=== PATIENT | female | born 1955 | race Caucasian/White ===

== ENCOUNTER 2017-02-21 21:37 | Inpatient (IN) | payer OTHER ==
[~2017-02-21] VITALS: Ht 170.2 cm; Wt 81.2 kg
[2017-02-21 23:27] LABS: BASOPHIL % 0.3 % (0-2); PLATELET COUNT 174 x10^3mcL (130-400)
[2017-02-21 23:36] LABS: RED CELL DISTRIBUTION WIDTH 15.3 % (11.5-14.5)
[2017-02-21 23:45] LABS: CALCIUM 9.2 mg/dL (8.5-10.1); CARBON DIOXIDE 26.7 mmol/L (21-32); CHLORIDE SERUM 97 mmol/L (98-107); CREATININE SERUM 0.6 mg/dL (0.6-1.0); GFR1 > 60 mL/min; GLUCOSE SERUM 103 mg/dL (74-106); POTASSIUM SERUM 3.4 mmol/L (3.5-5.1); SODIUM SERUM 133 mmol/L (136-145)
[2017-02-21 23:50] LABS: ALBUMIN 3.7 g/dL (3.4-5.0); ALKALINE PHOSPHATASE 61 U/L (46-116); ALT/SGPT 63 U/L (14-59); AST/SGOT 104 U/L (15-37); BILIRUBIN TOTAL 0.5 mg/dL (0.20-1.00)
[2017-02-21 23:52] LABS: TOTAL PROTEIN, SERUM 8.3 g/dL (6.4-8.2)
[2017-02-22] VITALS (7 sets, daily range): BP systolic 122–149; BP diastolic 55–77
[2017-02-22] MEDS ORDERED: METOPROLOL SUCC50 M2 PO (00:51)
[2017-02-22] MEDS ORDERED: ENALAPRIL MALEA10 MG PO (00:51)
[2017-02-22] MEDS ORDERED: LORAZEPAM0.5 MG PO (00:52)
[2017-02-22] MEDS ORDERED: SIMVASTATIN20 M1 PO (00:52)
[2017-02-22] MEDS ORDERED: ACETAMINOPHEN A1 TAB PO (00:53)
[2017-02-22] MEDS ORDERED: ASPIR 8181 MG PO (00:54)
[2017-02-22] MEDS ORDERED: VENTOLIN H0.09 MG/A1 (00:54)
[2017-02-22] MEDS ORDERED: NITROSTAT0.4 MG PO (00:54)
[2017-02-22 01:18] LABS: MAGNESIUM 1.6 mg/dL (1.8-2.4); PHOSPHOROUS 2.4 mg/dL (2.5-4.9)
[2017-02-22 01:19] LABS: CHOLESTEROL/HDL RATIO 1.9
[2017-02-22 01:32] LABS: FREE T4 1.11 ng/dL (0.76-1.46); FREE THYROXINE INDEX 2.4 ug/dL (1.4-4.5)
[2017-02-22 02:17] LABS: T3 TOTAL 1.02 ng/mL
[2017-02-22 04:28] LABS: microscopic required? YES; urine erythrocyte 1+ (NEGATIVE)
[2017-02-22 04:35] LABS: AMPHETAMINE QUAL UR NONE DETECTED (NEG <=1000)
[2017-02-22] MEDS ORDERED: GEMFIBROZIL600 MG PO (06:00)
[2017-02-22 11:52] LABS: CALCIUM 8.5 mg/dL (8.5-10.1); CARBON DIOXIDE 25.1 mmol/L (21-32); CHLORIDE SERUM 100 mmol/L (98-107); CREATININE SERUM 0.7 mg/dL (0.6-1.0); GFR1 > 60 mL/min; GLUCOSE SERUM 210 mg/dL (74-106); MAGNESIUM 1.7 mg/dL (1.8-2.4); PHOSPHOROUS 2.4 mg/dL (2.5-4.9); SODIUM SERUM 136 mmol/L (136-145)
[2017-02-23 05:13] VITALS: BP 119/68
[2017-02-23 06:34] LABS: PLATELET COUNT 201 x10^3mcL (130-400)
[2017-02-23 06:37] LABS: BASOPHIL % 0 % (0-2); RED CELL DISTRIBUTION WIDTH 15.3 % (11.5-14.5)
[2017-02-23 06:51] LABS: CALCIUM 8.8 mg/dL (8.5-10.1); CARBON DIOXIDE 25.8 mmol/L (21-32); CHLORIDE SERUM 100 mmol/L (98-107); CREATININE SERUM 0.8 mg/dL (0.6-1.0); GFR1 > 60 mL/min; GLUCOSE SERUM 196 mg/dL (74-106); MAGNESIUM 1.8 mg/dL (1.8-2.4); PHOSPHOROUS 2.2 mg/dL (2.5-4.9); POTASSIUM SERUM 4.4 mmol/L (3.5-5.1); SODIUM SERUM 135 mmol/L (136-145)
[2017-02-23] MEDS ORDERED: LEVAQUIN750 MG PO (11:28)
[2017-02-23] MEDS ORDERED: LAC PO (11:29)
[2017-02-23] MEDS ORDERED: CLEOCIN HCL300 MG PO (11:32)
== END 2017-02-23 08:00 | disposition left against medical advice (07) | DRG 177 ==
LOC: ED 21:37 → DU 02-22 00:31
PROVIDERS: Emergency Medicine; Family Medicine; ADMIT Family Medicine
DX: J69.0 Pneumonitis due to inhalation of food and vomit (principal); N17.0 Acute kidney failure with tubular necrosis; J44.1 Chronic obstructive pulmonary disease with (acute) exacerbation; N39.0 Urinary tract infection, site not specified; E87.1 Hypo-osmolality and hyponatremia; E87.6 Hypokalemia; E83.42 Hypomagnesemia; F10.10 Alcohol abuse, uncomplicated; E87.8 Other disorders of electrolyte and fluid balance, not elsewhere classified; E78.5 Hyperlipidemia, unspecified; I10 Essential (primary) hypertension; I25.2 Old myocardial infarction; Z79.82 Long term (current) use of aspirin; F17.210 Nicotine dependence, cigarettes, uncomplicated
CPT/HCPCS: 36600; 83880; 84439; 94150; G0480; J0456; J0696; J2543; J2920; J2930; J7030; J7613; J7620; J7644; Q0092

== ENCOUNTER 2017-02-23 21:02 | Observation (INO) | payer OTHER ==
[~2017-02-23] VITALS: Ht 170.2 cm; Wt 79.4 kg
[~2017-02-23 21:02] MED LIST: ACETAMINOPHEN A1 TAB PO; ASPIR 8181 MG PO; CLEOCIN HCL300 MG PO; ENALAPRIL MALEA10 MG PO; GEMFIBROZIL600 MG PO; LAC PO; LEVAQUIN750 MG PO; LORAZEPAM0.5 MG PO; METOPROLOL SUCC50 M2 PO; NITROSTAT0.4 MG PO; SIMVASTATIN20 M1 PO; VENTOLIN H0.09 MG/A1
[2017-02-23 22:01] LABS: BASOPHIL % 0.1 % (0-2); PLATELET COUNT 234 x10^3mcL (130-400)
[2017-02-23 22:08] LABS: CALCIUM 9.2 mg/dL (8.5-10.1); CARBON DIOXIDE 25.3 mmol/L (21-32); CHLORIDE SERUM 100 mmol/L (98-107); CREATININE SERUM 0.8 mg/dL (0.6-1.0); GFR1 > 60 mL/min; GLUCOSE SERUM 97 mg/dL (74-106); POTASSIUM SERUM 3.9 mmol/L (3.5-5.1); RED CELL DISTRIBUTION WIDTH 15.7 % (11.5-14.5); SODIUM SERUM 135 mmol/L (136-145)
[2017-02-23 22:13] LABS: ALBUMIN 3.4 g/dL (3.4-5.0); ALKALINE PHOSPHATASE 48 U/L (46-116); ALT/SGPT 49 U/L (14-59); AST/SGOT 45 U/L (15-37); BILIRUBIN TOTAL 0.28 mg/dL (0.20-1.00); TOTAL PROTEIN, SERUM 7.9 g/dL (6.4-8.2)
--- NOTE | 2017-02-23 22:29 | NUR ---
PT PRESENTS TO ED WITH C/C SOB SINCE SATURDAY. PT STATES THAT SHE WAS ADMITTED TO THE HOSPITAL ON FOR PNEUMONIA AND LOWER LUNG INFECTION. PT STATES THAT SHE SINGED OUT THIS AM BEACUSE SHE HAD TO PICK A FAMILY MEMBER UP FROM THE AIRPORT. PT STATES SHE RETURNED TO CONTINUE HER CARE FOR THE RESPIRATORY PROBLEMS. JORGE LUIS NOTED BILATERALLY. PT RPEROTS YELLOW PRODUCTIVE COUGH. PT STATES SHE IS SOB AND PT IS UNABLE TO COMPLETE A SENTENCE DUE TO SOB. AA&OX4. PT RPEROTS DIZZINESS BUT DENIES ANY CP OR SYNCOPE. PT STABLE. NAD. CALL LIGHT [employer]Harry LEVINE. WILL CONTINUE TO MONITOR.
[2017-02-23 23:51] LABS: MAGNESIUM 1.6 mg/dL (1.8-2.4); PHOSPHOROUS 2.9 mg/dL (2.5-4.9)
[2017-02-24] VITALS (7 sets, daily range): BP systolic 118–144; BP diastolic 64–77; Ht 170.2 cm; Wt 79.4 kg
--- NOTE | 2017-02-24 00:23 | NUR ---
AMBULATED TO BATHROOM WITH STEADY GAIT.
--- NOTE | 2017-02-24 00:23 | NUR ---
CALLED REPROT TO IAN STUART TO ASSUME CARE OF PT.
--- NOTE | 2017-02-24 00:54 | NUR ---
RECEIVED PT FROM ED VIA [employer], CAME IN DUE TO SOB AND COUGH FOR 1 1/2 WEEKS. AAOX4. C/O HEADACHE AND DIZZINESS. C/O SOB AND PRODUCTIVE COUGH, EXPECTORATES YELLOW PHLEGM. CRACKLES AND WHEEZES NOTED ON AUSCULTATION, ON 2LPM/NC. DENIES CHEST PAIN/PRESSURE, NSR ON THE MONITOR. DENIES ABDOMINAL DISCOMFORT. BOWEL SOUNDS ACTIVE. IV SITE PATENT AND INTACT. SIDE RAILS UPX2. CALL LIGHT ON REACH. ENDORSED
--- NOTE | 2017-02-24 01:13 | NUR ---
RECEIVED PT FROM IAN , PT'S AWAKE ALERT AND ORIENTED X4 , SOB NOTED, ON 2L N/C NO RESP DISTRESS NOTED ,ON TELE NUMBER 32 THAT SHOWS NSR , LUNG SOUNDS WITH WHEEZES . WILL CON'T TO MONITOR PT CLOSELY.
--- NOTE | 2017-02-24 06:12 | NUR ---
NO CHANGES OF CONDITION NOTED, ALL DUE MEDS GIVEN NO REACTION NOTED , PT'S IN BED AWAKE NO RESP DISTRESS NOTED, TELE NSR , PIV INTACT INFUSING WELL , POST ATIVAN PT'S LESS ANXIOUS .
[2017-02-24 07:17] LABS: MAGNESIUM 1.7 mg/dL (1.8-2.4); PHOSPHOROUS 3.6 mg/dL (2.5-4.9)
--- NOTE | 2017-02-24 07:30 | NUR ---
RECEIVED PT AAOX4. RESP EVEN AND UNLABORED ON 2L NC. NO SOB NOTED AT THIS TIME. IVF INFUSING. DENIES PAIN. BED IN LOWEST POSITION, SIDE RAILS UP X2. HOB ELEVATED. CALL LIGHT WITHIN REACH. WILL CONTINUE TO MONITOR.
[2017-02-24 07:54] LABS: PLATELET COUNT 209 x10^3mcL (130-400); RED CELL DISTRIBUTION WIDTH 15.6 % (11.5-14.5)
[2017-02-24 09:55] LABS: BAND NEUTROPHIL 1 % (0-10); BASOPHIL 0 % (0-2); MONOCYTE 6 % (0-7); SEGMENTED NEUTROPHILS 72 % (37-75)
[2017-02-24 09:56] LABS: PLATELET MORPHOLOGY PLATELETS NORMAL; rbc morphology (normal/abnorm) ABNORMAL (NORMAL)
[2017-02-24 10:23] LABS: microscopic required? YES; urine erythrocyte NEGATIVE (NEGATIVE)
--- NOTE | 2017-02-24 12:10 | NUR ---
PT RESTING IN BED, NO APPARENT DISTRESS. PT NOT COMPLAINING OF SOB, RESPIRATIONS EVEN AND UNLABORED. ON 2L NC. IV FLUIDS INFUSING, BED IN LOWEST POSITION, CALL LIGHT WITHIN REACH. WILL CONTINUE TO MONITOR
--- NOTE | 2017-02-24 14:22 | NUR ---
DR. GANDARA AWARE OF UA RESULTS AND MAG 1.7. NO NEW ORDERS AT THIS TIME. WILL CONTINUE TO MONITOR.
--- NOTE | 2017-02-24 18:19 | NUR ---
PT SITTING UP IN BED EATING DINNER, NO COMPLAINT OF ANY RESPIRATORY DISTRESS. PT DENIES ANY PAIN, CALL LIGHT WITHIN REACH, WILL CONTINUE TO MONITOR.
--- NOTE | 2017-02-24 20:02 | NUR ---
RECEIVED PT FROM PREVIOUS SHIFT NURSE. PT AOX4. TELE #32, SR. HR 81. DENIES CP/PRESSURE. PULSES GOOD, NO EDEMA NOTED. CRACKLES HEARD UPON AUSCULTATION ON 2L NC. BOWEL SOUNDS ACTIVE. VOIDS FREELY. AMBULATORY. SKIN INTACT. IV IN LFA, INTACT AND PATENT. BED IN LOWEST POSITION. CALL LIGHT WITHIN REACH. WILL CONTINUE TO MONITOR.
--- NOTE | 2017-02-25 03:06 | NUR ---
PT RESTING IN BED. RR EVEN AND UNLABORED. NO ACUTE DISTRESS NOTED. CALL LIGHT WITHIN REACH. BED IN LOWEST POSITION. WILL CONTINUE TO MONITOR.
[2017-02-25 05:44] VITALS: BP 135/58
[2017-02-25 07:38] LABS: PLATELET COUNT 226 x10^3mcL (130-400)
[2017-02-25 07:40] LABS: BASOPHIL % 0 % (0-2)
--- NOTE | 2017-02-25 08:00 | NUR ---
RECEIVED PT IN BED ALERT AND ORIENTED X4. TELE #32, NSR 65. DENIES CP. BREATHING EVEN AND UNLABORED WITH O2 VIA NC AT 2L. NO SOB. LUNG SOUNDS CLEAR. REPORTS OCCASIONAL DRY COUGH. DENIES ANY GI UPSET. REPORTS LOOSE BM LAST NIGHT. VOIDS FREELY. AMBULATORY. NO EDEMA NOTED. INSTRUCTED TO USE CALL LIGHT WHEN IN NEED OF ANY ASSISTANCE,
[2017-02-25 10:16] VITALS: BP 123/63
[2017-02-25 14:07] VITALS: BP 112/56
--- NOTE | 2017-02-25 15:04 | NUR ---
O2 SAT = 94% ON ROOM AIR. NO SOB NOTED. ATIVAN PO GIVEN FOR PTS REPORT OF ANXIETY.
[2017-02-25 15:41] VITALS: BP 112/56
--- NOTE | 2017-02-25 17:25 | NUR ---
IV AND TELE DC'D. DISCHARGE INSTRUCTIONS GIVEN AND EXPLAINED TO PT, PT VERBALIZED UNDERSTANDING. PT DISCHARGED HOME, BROUGHT OFF FLOOR AMBULATORY ACCOMPANIED BY RN.
== END 2017-02-25 17:20 | disposition home or self-care (01) | DRG 177 ==
LOC: ED 21:02 → DU 02-24 00:13
PROVIDERS: Emergency Medicine; ADMIT Family Medicine
DX: J69.0 Pneumonitis due to inhalation of food and vomit (principal); N17.0 Acute kidney failure with tubular necrosis; J44.1 Chronic obstructive pulmonary disease with (acute) exacerbation; N39.0 Urinary tract infection, site not specified; E87.1 Hypo-osmolality and hyponatremia; I10 Essential (primary) hypertension; E83.42 Hypomagnesemia; E78.5 Hyperlipidemia, unspecified; I25.2 Old myocardial infarction; F17.210 Nicotine dependence, cigarettes, uncomplicated; Z68.27 Body mass index [BMI] 27.0-27.9, adult; Z79.82 Long term (current) use of aspirin
CPT/HCPCS: 36600; 83880; 94150; G0378; J1956; J2920; J2930; J3490; J7030; J7620; J7626; Q0092

== ENCOUNTER 2017-03-28 20:58 | Inpatient (IN) | payer OTHER ==
[~2017-03-28] VITALS: Ht 170.2 cm; Wt 79.5 kg
--- NOTE | 2017-03-28 22:00 | NUR ---
RECEIVED PT FROM TRIAGE FOR C/C ETOH. PT IS A/O X4, FOLLOWS COMMANDS, AND SPEECH IS CLEAR. PT STATES THAT SHE LOST HER HOME 4 DAYS AND HAS BEEN ON A DRINKING BINGE SINCE THEN. PT WALKS WITH A STEADY GAIT AND HAS NO ACUTE SIGNS OF DISTREE. WILL CONTINUE TO MONITOR.
[2017-03-28 22:26] LABS: UA SPECIFIC GRAVITY <=1.005 (1.005-1.035); microscopic required? YES; urine erythrocyte TRACE (NEGATIVE)
[2017-03-28 22:28] LABS: BASOPHIL % 1.2 % (0-2); PLATELET COUNT 269 x10^3mcL (130-400); RED CELL DISTRIBUTION WIDTH 14.4 % (11.5-14.5)
[2017-03-28 22:34] LABS: AMPHETAMINE QUAL UR NONE DETECTED (NEG <=1000)
--- NOTE | 2017-03-28 22:43 | NUR ---
XRAY AT BEDSIDE
[2017-03-28 22:47] LABS: CHLORIDE SERUM 97 mmol/L (98-107); CREATININE SERUM 0.9 mg/dL (0.6-1.0); GFR1 > 60 mL/min; GLUCOSE SERUM 100 mg/dL (74-106); POTASSIUM SERUM 3.4 mmol/L (3.5-5.1); SODIUM SERUM 133 mmol/L (136-145)
[2017-03-28 22:51] LABS: ALKALINE PHOSPHATASE 49 U/L (46-116); ALT/SGPT 31 U/L (14-59); AMYLASE 54 U/L (25-115); AST/SGOT 74 U/L (15-37); BILIRUBIN TOTAL 0.3 mg/dL (0.20-1.00); CHOLESTEROL 179 mg/dL (<200); LIPASE 339 IU/L (73-393); MAGNESIUM 1.4 mg/dL (1.8-2.4)
[2017-03-28 22:52] LABS: HDL CHOLESTEROL 81 mg/dL (40-60)
--- NOTE | 2017-03-28 23:53 | NUR ---
PT LAYING IN GURNEY IN POSITION OF COMFORT WITH EYES CLOSED SNORING. RESP EVEN AND UNLABORED. PT REMAINS ON FULL MONITORS, NO DISTRESS NOTED
--- NOTE | 2017-03-29 00:30 | NUR ---
TIRED CALLING [facility] FOR REPORT, BUSY TONE CAME UP.
--- NOTE | 2017-03-29 00:41 | NUR ---
REPORT GIVEN TO SADE DE ANDA, ALL QUESTIONS AND CONCERNS ADDRESSED AT THIS TIME.
[2017-03-29] MEDS ORDERED: FENOFIBRATE160 M1 PO (00:57)
[2017-03-29 01:31] VITALS: BP 113/63
[2017-03-29 01:35] VITALS: Ht 170.2 cm; Wt 79.5 kg
--- NOTE | 2017-03-29 01:35 | NUR ---
RECEIVED PT FROM ED VIA LIZ. ORIENTED PT TO ROOM AND SURROUNDINGS. IV NOTED TO RAC PATENT AND INTACT. TELE 16 PLACED ON PT READING NSR. INSTRUCTED PT ON THE USE OF CALL LIGHT FOR ASSISTANCE. ENDORSED PT TO PRIMARY NURSE LYLE
[2017-03-29 01:36] LABS: FREE T4 0.87 ng/dL (0.76-1.46); T4(THYROXINE) 5.6 ug/dL (4.7-13.3)
[2017-03-29 02:51] LABS: T3 TOTAL 0.69 ng/mL
--- NOTE | 2017-03-29 04:07 | NUR ---
THE ATIVAN 1 MG PO WAS NOT ADMINISTERED BECAUSE PT WAS ASLEEP.
--- NOTE | 2017-03-29 04:21 | NUR ---
PT WOKE UP AND ADMINISTERED 1 MG ATIVAN PO. WILL MONITOR.
--- NOTE | 2017-03-29 04:25 | NUR ---
STARTED IV NS AT 115 ML PER HOUR INFUSING WELL IN THE RIGHT AC. PATENT AND INTACT. LEVAQUIN 750 MG IVPUSH WAS ADMINISTERED FOR UTI WITHOUT ADVERSE REACTION NOTED. MAG RIDER 2 G IS INFUSING RIGHT NOW. PT WOKE UP AND NOTED BOTH HANDS A LITTLE BIT SHAKING. ATIVAN 1 MG PO WAS ASMINISTERED. SILVIO HAYWOOD.
[2017-03-29 05:14] VITALS: BP 128/68
--- NOTE | 2017-03-29 05:15 | NUR ---
PT IS RESTING. ATIVAN PO WAS ADMINISTERED. STILL HAS IV NS AT AT 115 ML PER HOUR. MADE COMFORTABLE IN BED. CALL LIGHT WITHIN EASY REACH.
[2017-03-29 06:29] LABS: CALCIUM 8.2 mg/dL (8.5-10.1); CARBON DIOXIDE 26.2 mmol/L (21-32); CHLORIDE SERUM 100 mmol/L (98-107); CREATININE SERUM 0.8 mg/dL (0.6-1.0); GFR1 > 60 mL/min; GLUCOSE SERUM 110 mg/dL (74-106); MAGNESIUM 1.8 mg/dL (1.8-2.4); POTASSIUM SERUM 3.6 mmol/L (3.5-5.1); SODIUM SERUM 137 mmol/L (136-145)
--- NOTE | 2017-03-29 08:15 | NUR ---
AT 0730 - RECEIVED PATIENT FROM NIGHT NURSE. PATIENT AWAKE,ALERT AND ORIENTED. MONITOR SHOWING SINUS RHYTHM; RATE 75. IV INFUSING NS AT 115 ML/HR. PATIENT REQUESTING ATIVAN; SAYS SHE FEELS ANXIOUS. AT 0755 - GIVEN ATIVAN 1 MG PO PER EMAR. NOTED RESP CONGESTION AND COUGH. PATIENT SAYS THAT SHE RESUMED SMOKING RECENTLY. ENCOURAGED USE OF INSENTIVE SPIROMETER.
[2017-03-29 10:25] VITALS: BP 127/63
--- NOTE | 2017-03-29 13:12 | NUR ---
AT 0830 - SEEN BY DR FRANCO DURING MORNING ROUNDS. MEDICAL TEAM DOCTORS, ELROY WOOD AND MYSELF PRIMARY NURSE ALSO PRESENT. DR FRANCO SPOKE WITH PATIENT ABOUT REASON FOR ADMISSION, TEST RESULTS (ELECTROLYTE IMBALANCE AND UTI) AND PLAN OF CARE. PATIENT SAID THAT SHE RECENTLY BECAME HOMELESS. VERBALIZED AGREEMENT TO SUGGESTED PLAN OF CARE WHICH INCLUDES [employer], PSYCH CONSULT AND COMMENCEMENT OF AN ANTIDEPRESSANT MEDICATION. AT 0915 - NICODERM PATCH APPLIED TO GLADIS. AT 1045 - PATIENT REQUESTED A COUGH SYRUP. DR VALADEZ CONTACTED. AT 1235 - GIVEN ROBITUSSEN PER EMAR. PATIENT ALSO C/O RESTLESSNESS AND MEDICATED WITH ADDITIONAL DOSE OF ATIVAN PER EMAR.
[2017-03-29 13:49] VITALS: BP 131/80
--- NOTE | 2017-03-29 15:26 | NUR ---
PATIENT NOW RESTING QUIETLY. NO C/O PAIN. HAS BEEN SEEN BY DR MARTINEZ (PSYCHOLOGY).
[2017-03-29 17:16] VITALS: BP 119/83
--- NOTE | 2017-03-29 18:45 | NUR ---
AWAKE, ALERT AND ORIENTED. APPEARS MORE CALM THIS PM. VSS AND WNL. TOLERATING FOOD AND FLUIDS PO. AMBULATES TO BATHROOM FOR TOILET NEEDS. IV INFUSION REMAINS AT 115ML/HR NS. WILL ENDORSE CARE TO NIGHT NURSE.
--- NOTE | 2017-03-29 19:30 | NUR ---
PT IS ALERT AND ORIENTED X4. PLEASANT AND COOPERATIVE. NOTED PT HAS SOME CONGESTIONS AND COUGHING OCCASIONALLY ROOM AIR. CXR- NEGATIVE. STILL HAS IV NS AT 110 ML PER HOUR INFUSING WELL IN THE RIGHT AC. PATENT AND INTACT. IV LEVAQUIN DAILY FOR UTI. ACTIVE BOWEL SOUNDS AND NO DISTENTION NOTED. PT ALSO HAS ATIVAN ROUTINELY GIVEN BECAUSE OF ETOH PROTOCOL. REFUSED CODY SCD'S. WILL MONITOR.
[2017-03-29 21:03] VITALS: BP 143/63
--- NOTE | 2017-03-29 23:36 | NUR ---
PT C/O UNABLE TO SLEEP/RESTLESS. MEDICATED WITH ATIVAN 2MG PO. WILL MONITOR.
--- NOTE | 2017-03-29 23:42 | NUR ---
C/O MODERATE HEADACHE 5/10. MEDICATED WITH TYLENOL 650 MG PO. WILL MONITOR.
--- NOTE | 2017-03-30 03:20 | NUR ---
PT WOKE UP AND C/O MODERATE BODY ACHES/HEADACHE 02/02 AND ANXIETY. MEDICATED WITH NORCO 1 TAB PO AND ATIVAN 1MG PRN. WILL CONTINUE TO MONITOR.
--- NOTE | 2017-03-30 05:02 | NUR ---
PT SI RESTING WELL. AMBULATED TO THE BATHROOM BY HERSELF. STEADY GAIT. STILL HAS IV NS AT 115 ML PER HOUR INFUSING WELL. WAS ALSO GIVEN ROBITUSSIN FOR COUGH. WILL MONITOR.
[2017-03-30 06:03] VITALS: BP 119/66
--- NOTE | 2017-03-30 07:19 | NUR ---
GAVE REPORT TO ZAK STUART WHO WILL TAKE OVER THE CARE OF THE PT.
--- NOTE | 2017-03-30 08:11 | NUR ---
AT 0745 - RECEIVED PATIENT FROM NIGHT NURSE. PATIENT AWAKE, ALERT AND ORIENTED TO PERSON, PALCE, TIME AND SITUATION. APPEARS CALM. REPORTS SLEEPING WELL DURING NIGHT. MONITOR SHOWING SINUS RHYTHM; RATE 70'S. NO ECTOPIES OR C/O CHEST PAIN. IV INFUSING NS AT 115ML/HR. PATIENT SITTING UP IN BED EATING BREAKFAST. C/O HEADACHE AT THIS TIME AND MEDICATED WITH NORCO PER EMAR.
--- NOTE | 2017-03-30 09:02 | NUR ---
AT 0840 - SEEN BY DR VICENTE DURING MORNING ROUNDS. DR OGLESBY, DR SAUCEDA, E[employer] WOOD AND MYSELF PRIMARY NURSE ALSO PRESENT. DR VICENTE SPOKE WITH PATIENT ABOUT TREATMENT PLAN TO HELP PATIENT GET OVER ETOH WITHDRAWAL SYMPTOMS. PATIENT VERBALIZED AGREEMENT WITH TREATMENT PLAN.
[2017-03-30 09:22] VITALS: BP 113/67
--- NOTE | 2017-03-30 10:06 | NUR ---
AT 0935 - PATIENT COMMENCED ON PROZAC AND LEXAPRO. FIST DOSE OF EACH ADMINISTERED PER EMAR. PATIENT ALSO GIVEN ADDITIONAL DOSE OF ATIVAN 1MG PO FOR TREMORS.
[2017-03-30 11:53] LABS: CALCIUM 8.3 mg/dL (8.5-10.1); CARBON DIOXIDE 28.1 mmol/L (21-32); CHLORIDE SERUM 103 mmol/L (98-107); CREATININE SERUM 0.7 mg/dL (0.6-1.0); GFR1 > 60 mL/min; GLUCOSE SERUM 104 mg/dL (74-106); POTASSIUM SERUM 4.4 mmol/L (3.5-5.1); SODIUM SERUM 138 mmol/L (136-145)
--- NOTE | 2017-03-30 12:50 | NUR ---
PATIENT PROVIDED WITH PRINTED MATERIAL ON NEW MEDICATIONS - LEXAPRO AND PROZAC. C/O SOME DIZZINESS WHEN AMBULATING TO BATHROOM. INSTRUCTED TO CALL FOR NURSE IF FELING DIZZY AND MEDICATED WITH MECLIZINE PER EMAR.
[2017-03-30 12:56] VITALS: BP 142/85
--- NOTE | 2017-03-30 17:15 | NUR ---
AT 1620 - PATIENT C/O HEADACHE WHICH DID NOT RESOLVE WITH FIORICET ADMINSITERED EARLIER. NOW GIVEN NORCO PER EMAR. IV IN RAC BLEEDING. IV CATHETER REMOVED INTACT AND IV RESITED IN LFA. IV INFUSION OF NS RESUMED AT 115ML/HR.
[2017-03-30 17:40] VITALS: BP 143/73
--- NOTE | 2017-03-30 19:24 | NUR ---
PATIENT AWAKE, ALERT AND ORIENTED. HAS HAD 2 ADDITIONAL DOSES OF ATIVAN 1 MG PO THIS SHIFT. IV INFUSION REMAINS AT 115ML/HR. HEADAHCE HAS RESOLVED WITH NORCO. CARE OF PATIENT ENDORSED TO NIGHT NURSE.
--- NOTE | 2017-03-30 19:38 | NUR ---
PT. AWAKE, ALERT, ORIENTED X4. DENIES HEADACHE AT THIS TIME. DENIES DIZZINESS. BREATH SOUNDS CLEAR THROUGHOUT LUNG WESTFALL, RESP. EVEN, UNLABORED. NO SOB NOTED. ON RA. ENCOURAGED TO USE I.S. WHILE AWAKE. ABD. SOFT AND ROUND, BOWEL SOUNDS ACTIVE. DENIES ABD. PAIN OR NAUSEA. NO EDEMA NOTED TO EXTREMITIES. PEDAL PULSES STRONG CODY.TELE#16, NSR. DENIES ANY CHESTPAIN OR DISCOMFORT. IVF NS TO LFA. SITE WNL. CALL LIGHT REMAINS WITHIN REACH.
[2017-03-30 21:11] VITALS: BP 150/76
--- NOTE | 2017-03-30 23:42 | NUR ---
PT. AWAKE AND C/O HEADACHE, 04/04. PRN NORCO GIVEN ORDERED. WILL MONITOR.
--- NOTE | 2017-03-31 04:35 | NUR ---
PT. C/O FEELING ANXIOUS. PRN ATIVAN 1 MG PO GIVEN. WILL MONITOR PT.
[2017-03-31 06:10] VITALS: BP 138/82
--- NOTE | 2017-03-31 07:30 | NUR ---
AT 0710 - RECEIVED PATIENT FROM NIGHT NURSE. PATIENT AWAKE, ALERT AND ORIENTED. SAYS THAT SHE IS FEELING DEPRESSED. WAS COMMENCED ON LEXAPRO AND PROZAC YESTERDAY. REPORTS THAT SHE STIL HAS TRACES OF HEADACHE. MONITOR SHOWING SINUS RHYTHM; RATE 58. IV INFUSING NS AT 115ML/HR.
[2017-03-31 07:55] LABS: PLATELET COUNT 192 x10^3mcL (130-400)
[2017-03-31 08:01] LABS: RED CELL DISTRIBUTION WIDTH 14.6 % (11.5-14.5)
[2017-03-31 08:10] LABS: CALCIUM 8.1 mg/dL (8.5-10.1); CARBON DIOXIDE 22.8 mmol/L (21-32); CHLORIDE SERUM 102 mmol/L (98-107); CREATININE SERUM 0.6 mg/dL (0.6-1.0); GFR1 > 60 mL/min; GLUCOSE SERUM 74 mg/dL (74-106); POTASSIUM SERUM 4.4 mmol/L (3.5-5.1); SODIUM SERUM 135 mmol/L (136-145)
[2017-03-31 08:56] VITALS: BP 133/73
--- NOTE | 2017-03-31 09:54 | NUR ---
SEEN BY DR VICENTE DURING MORNING ROUNDS. MEDICAL TEAM DOCTORS, ELR[employer] WOOD AND MYSELF PRIMARY NURSE ALSO PRESENT. DR VICENTE SPOKE WITH PATIENT ABOUT PLAN OF TREATMENT AND MEDICATION ADJUSTMENT. PATIENT WILL STAY IN HOSPITAL TODAY. PATIENT VERBALIZED AGREEMENT. GIVEN ADDITIONAL DOSE OF ATIVAN 1MG PO PER EMAR FOR SOME TREMORS. REPORTS THAT HEADACHE HAS RESOLVED.
[2017-03-31 13:10] VITALS: BP 152/72
--- NOTE | 2017-03-31 15:43 | NUR ---
PATIENT TAKEN OFF CARDIAC MONTIORING STATUS CHANGED TO MED-SURG.
[2017-03-31 16:46] VITALS: BP 146/76
--- NOTE | 2017-03-31 18:38 | NUR ---
VSS. AFEBRILE. NO C/O ABDOMINAL PAIN. AMBULATES TO BATHROOM FOR TOILET NEEDS. IV INFUSING D5 NS AT 50ML/HR. TOLERATING CLEAR LIQUID DIET. NO NAUSEA. WILL ENDORSE CARE TO NIGHT NURSE.
--- NOTE | 2017-03-31 18:44 | NUR ---
VSS. MOSTLY CALM. HAS HAD 2 DOSES OF ADDITIONAL ATIVAN THIS SHIFT. AMBULATES. IV INFUSION REMAINS AT 115 ML/HR. TOLERATING FOOD AND FLUIDS PO. WILL ENDORSE CARE TO NIGHT NURSE.
--- NOTE | 2017-03-31 19:20 | NUR ---
REC'D PT FROM DAY NURSE. PT AAOX4, SPEECH CLEAR, FOLLOWS COMMANDS. REPORTS SOME ANXIETY. C/O THROBBING MERIDA 03/04. DENIED TYLENOL- STATES IT DOES NOT WORK. WILL GIVE NORCO PER ORDER. MED SURG PT. DENIES CP, DIZZINESS, OR PALPITATIONS. DENIES RESP DISTRESS, SOB, OR CONGESTION. BREATHING EVEN/UNLABORED ON RA. LUNG SOUNDS CLEAR. NO EDEMA NOTED. DENIES ABD PAIN, TENDERNESS, OR N/V. VOIDING FREELY. AMBULATORY. SKIN INTACT. CALL LIGHT WITHIN REACH, BED AT LOWEST POSITION. WILL CONTINUE TO MONITOR.
[2017-03-31 21:14] VITALS: BP 151/72
--- NOTE | 2017-03-31 23:16 | NUR ---
PT ANXIOUS AND SHAKY. ATIVAN PO GIVEN PER ORDER. WILL MONITOR FOR RELIEF.
--- NOTE | 2017-04-01 01:41 | NUR ---
PT C/O THROBBING MERIDA 03/04. NORCO GIVEN PER ORDER. WILL MONITOR FOR RELIEF.
--- NOTE | 2017-04-01 02:30 | NUR ---
SPOT CHECKED BS 230
--- NOTE | 2017-04-01 02:56 | NUR ---
PT RESTING IN BED WATCHING TV. NO COMPLAINTS AT THIS TIME. GIVEN SODA AND CRACKERS PER REQUEST. NO SIGNS OF DISTRESS NOTED. BREATHING EVEN/UNLABORED ON RA. WILL CONTINUE TO MONITOR.
--- NOTE | 2017-04-01 04:42 | NUR ---
PT FEELING ANXIOUS. ATIVAN GIVEN PER ORDER. WILL MONITOR FOR RELIEF.
[2017-04-01 06:14] VITALS: BP 128/70
--- NOTE | 2017-04-01 06:19 | NUR ---
PT AWAKE, RESTING IN BED. STATES MERIDA IS "MUCH BETTER." DENIES FEELING ANXIOUS AT THIS TIME. SCHEDULED ATIVAN GIVEN PER ORDER. BREATHING EVEN/UNLABORED ON RA. NO COMPLAINTS AT THIS TIME. NO SIGNIFICANT CHANGES DURING SHIFT. WILL ENDORSE TO DAY NURSE.
[2017-04-01 06:20] LABS: CALCIUM 8.9 mg/dL (8.5-10.1); CARBON DIOXIDE 31.7 mmol/L (21-32); CHLORIDE SERUM 104 mmol/L (98-107); CREATININE SERUM 0.9 mg/dL (0.6-1.0); GFR1 > 60 mL/min; GLUCOSE SERUM 108 mg/dL (74-106); POTASSIUM SERUM 4.8 mmol/L (3.5-5.1); SODIUM SERUM 136 mmol/L (136-145)
--- NOTE | 2017-04-01 08:00 | NUR ---
RECEIVED PT IN BED ALERT AND ORIENTED X4. REPORTS THROBBING HEADACHE RATED 7/10. WILL GIVE NORCO ORDERED. PT STATES HEADACHE HAS IMPROVED. NO SOB NOTED. DENIES ANY GI UPSET. VOIDS FREELY. AMBULATORY. SKIN CDI. INSTRUCTED TO USE CALL LIGHT WHEN IN NEED OF ANY ASSISTANCE.
[2017-04-01 09:16] VITALS: BP 94/56
[2017-04-01] MEDS ORDERED: NEU300 PO (11:34)
[2017-04-01] MEDS ORDERED: ATIVAN0.5 M1 PO (11:41)
[2017-04-01 12:03] VITALS: BP 94/56
[2017-04-01] MEDS ORDERED: NIC7 TD (13:15)
--- NOTE | 2017-04-01 13:53 | NUR ---
DISCHARGE INSTRUCTIONS AND PRESCRIPTIONS GIVEN AND EXPLAINED TO PT, PT VERBALIZED UNDERSTANDING.
--- NOTE | 2017-04-01 14:15 | NUR ---
IV DC'D, INTACT. PT DISCHARGED HOME, ACCOMPANIED OFF FLOOR BY RN.
== END 2017-04-01 14:15 | disposition home or self-care (01) | DRG 917 ==
LOC: ED 20:58 → DU 03-29 00:02 → MU 03-31 15:29
PROVIDERS: Emergency Medicine; Student in an Organized Health Care Education/Training Program; ADMIT Family Medicine
DX: T51.0X1A Toxic effect of ethanol, accidental (unintentional), initial encounter (principal); G92 Toxic encephalopathy; N39.0 Urinary tract infection, site not specified; E87.1 Hypo-osmolality and hyponatremia; F33.1 Major depressive disorder, recurrent, moderate; E87.6 Hypokalemia; E83.42 Hypomagnesemia; J44.9 Chronic obstructive pulmonary disease, unspecified; I10 Essential (primary) hypertension; E78.5 Hyperlipidemia, unspecified; F41.1 Generalized anxiety disorder; F10.229 Alcohol dependence with intoxication, unspecified; F17.210 Nicotine dependence, cigarettes, uncomplicated; I25.2 Old myocardial infarction; Z68.27 Body mass index [BMI] 27.0-27.9, adult; Z91.19 Patient's noncompliance with other medical treatment and regimen; Y90.8 Blood alcohol level of 240 mg/100 ml or more; Y92.009 Unspecified place in unspecified non-institutional (private) residence as the place of occurrence of the external cause
CPT/HCPCS: 83880; 84439; 94150; 99406; G0480; J1956; J3411; J3475; J3490; J3535; J7030; J8597; Q0092

== ENCOUNTER 2017-06-12 21:17 | Emergency (ER) | payer OTHER ==
[~2017-06-12 21:17] MED LIST changes: +ATIVAN0.5 M1 PO; +FENOFIBRATE160 M1 PO; +NEU300 PO; +NIC7 TD
[2017-06-12 23:52] LABS: BASOPHIL % 0.5 % (0-2); PLATELET COUNT 242 x10^3mcL (130-400)
[2017-06-12 23:53] LABS: CALCIUM 9.4 mg/dL (8.5-10.1); CARBON DIOXIDE 29.6 mmol/L (21-32); CHLORIDE SERUM 99 mmol/L (98-107); GFR1 > 60 mL/min; GLUCOSE SERUM 108 mg/dL (74-106); POTASSIUM SERUM 4.9 mmol/L (3.5-5.1); SODIUM SERUM 135 mmol/L (136-145)
[2017-06-12 23:56] LABS: RED CELL DISTRIBUTION WIDTH 15.4 % (11.5-14.5)
[2017-06-12 23:58] LABS: ALBUMIN 3.8 g/dL (3.4-5.0); ALKALINE PHOSPHATASE 42 U/L (46-116); ALT/SGPT 39 U/L (14-59); AST/SGOT 76 U/L (15-37); BILIRUBIN TOTAL 0.4 mg/dL (0.20-1.00); TOTAL PROTEIN, SERUM 8.4 g/dL (6.4-8.2)
[2017-06-13 02:13] VITALS: BP 97/65
== END 2017-06-13 02:13 | disposition home or self-care (01) ==
LOC: ED 21:17
PROVIDERS: Emergency Medicine
DX: G45.9 Transient cerebral ischemic attack, unspecified (principal); E78.00 Pure hypercholesterolemia, unspecified; I10 Essential (primary) hypertension; I25.2 Old myocardial infarction; J44.9 Chronic obstructive pulmonary disease, unspecified
CPT/HCPCS: 36415